=== PATIENT | female | born 1990 | race Caucasian/White ===

== ENCOUNTER 2019-12-16 17:18 | Observation (INO) | payer BC ==
[~2019-12-16] VITALS: Ht 154.9 cm; Wt 68.0 kg
[2019-12-16] MEDS ORDERED: PREN1TAB78 MT (18:24)
[2019-12-16] MEDS ORDERED: CALC-700 MT (18:24)
[2019-12-20] MEDS ORDERED: IBUP-2030 MT (08:05)
== END 2019-12-16 22:15 | disposition home or self-care (01) ==
LOC: 8 EST LDRP 17:18
PROVIDERS: ADMIT Obstetrics & Gynecology; ATTEND Obstetrics & Gynecology
DX: O42.92 Full-term premature rupture of membranes, unspecified as to length of time between rupture and onset of labor (principal); Z3A.39 39 weeks gestation of pregnancy
CPT/HCPCS: 59025; 76815; 76818; G0378; 99281